=== PATIENT | male | born 1990 | race Caucasian/White ===

== ENCOUNTER 2019-06-21 08:28 | Emergency (ER) | payer SELFPAY ==
--- NOTE | 2019-06-21 09:46 | RADIOLOGY REPORT (SQ) ---
EXAM DESCRIPTION: CLAVICLE LEFT COMPLETED DATE/TIME: 06/21/2019 9:37 am REASON FOR STUDY: bone tenderness COMPARISON: None. NUMBER OF VIEWS: Two views. TECHNIQUE: Frontal and angled images were acquired of the left clavicle. LIMITATIONS: None. FINDINGS: MINERALIZATION: Normal. BONES: No acute fracture or dislocation. No worrisome bone lesions. No significant osteophytes. SOFT TISSUES: No obvious swelling or foreign body. OTHER: No other significant finding. IMPRESSION: Normal appearance of the left clavicle.. 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
--- NOTE | 2019-06-21 11:04 | ER Document Report ---
ED General - General Chief Complaint: Fall Injury Stated Complaint: FALL/LEFT COLLARBONE,SHOULDER PAIN Time Seen by Provider: 06/21/19 10:54 Primary Care Provider: TROY DEGROOT JR, DO [ACTIVE PROVISIONAL STAFF] - Follow up in 1 week (for ortho follow up if symptoms persist) TRAVEL OUTSIDE OF THE [place] IN LAST 30 DAYS: No - HPI Notes: 28 year old male to the ED with C/O left clavicle pain since yesterday. States he was walking his dogs, when they pulled him down and he landed onto the left clavicle. States it hurts to raise his left shoulder and even hurts to use his right hand to get up out of bed. He is right hand dominant. Has not taken anything for the pain. Denies any other injuries. - Related Data Allergies/Adverse Reactions: No Known Allergies Allergy (Verified 06/21/19 08:56) Past Medical History - General Information source: Patient - Social History Smoking Status: Never Smoker Chew tobacco use (# tins/day): No Frequency of alcohol use: Occasional Drug Abuse: None Family History: Reviewed & Not Pertinent Patient has suicidal ideation: No Patient has homicidal ideation: No - Immunizations Hx Diphtheria, Pertussis, Tetanus Vaccination: Yes Review of Systems - Review of Systems Constitutional: denies: Chills, Fever EENT: No symptoms reported Cardiovascular: denies: Chest pain, Palpitations, Orthopnea, Dyspnea, Syncope, Dizziness, Lightheaded Respiratory: denies: Cough, Short of breath Gastrointestinal: denies: Abdominal pain, Diarrhea, Nausea, Vomiting Musculoskeletal: See HPI, Joint pain - left collarbone pain. denies: Deformity Skin: No symptoms reported Hematologic/Lymphatic: No symptoms reported Neurological/Psychological: No symptoms reported -: Yes All other systems reviewed and negative Physical Exam - Vital signs Vitals: Temp Pulse Resp BP Pulse Ox 99.1 F 82 18 141/89 H 98 06/21/19 08:39 06/21/19 08:39 06/21/19 08:39 06/21/19 08:39 06/21/19 08:39 Interpretation: Normal - General General appearance: Appears well, Alert - HEENT Head: Normocephalic, Atraumatic Eyes: Normal Pupils: PERRL - Respiratory Respiratory status: No respiratory distress Chest status: Nontender Breath sounds: Normal Chest palpation: Normal - Cardiovascular Rhythm: Regular Heart sounds: Normal auscultation Murmur: No - Abdominal Inspection: Normal Distension: No distension Bowel sounds: Normal Tenderness: Nontender Organomegaly: No organomegaly - Extremities General upper extremity: Normal inspection, Nontender, Normal color, Normal ROM, Normal temperature General lower extremity: Normal inspection, Nontender, Normal color, Normal ROM, Normal temperature, Normal weight bearing Notes: non tender to palpation of the midline cervical, thoracic, and lumbar spine. There is TTP over the left clavicle without any gross deformity or edema. There is no TTP over the left shoulder joint. There is increased pain when extending the left upper arm and adducting the left shoulder. - Neurological Neuro grossly intact: Yes Cognition: Normal Orientation: AAOx4 [place] Coma Scale Eye Opening: Spontaneous [place] Coma Scale Verbal: Oriented [place] Coma Scale Motor: Obeys Commands [place] Coma Scale Total: 15 Speech: Normal Motor strength normal: LUE, RUE, LLE, RLE Sensory: Normal - Psychological Associated symptoms: Normal affect, Normal mood - Skin Skin Temperature: Warm Skin Moisture: Dry Skin Color: Normal Course - Re-evaluation Re-evalutation: Clavicle X-Ray 06/21/19 00:00 IMPRESSION: Normal appearance of the left clavicle.. Impression: Left clavicle injury. No XR seen by me on XR and confirmed by rad., Will place in shoulder immobilizer and treat with pain meds. Encouraged ortho follow up if pain has not gotten better in one week. Patient agrees with the plan. - Vital Signs Vital signs: Temp Pulse Resp BP Pulse Ox 97.4 F 87 16 121/82 100 06/21/19 11:12 06/21/19 11:12 06/21/19 11:12 06/21/19 11:12 06/21/19 11:12 Procedures - Immobilization Left Shoulder Pre-Proc Neuro Vasc Exam: Normal Immobilizer type: Shoulder immobilizer Performed by: PCT Post-Proc Neuro Vasc Exam: Normal Alignment checked and good: Yes Discharge - Discharge Clinical Impression: Shoulder girdle symptom Injury of left clavicle Qualifiers: Encounter type: initial encounter Qualified Code(s): S49.92XA - Unspecified injury of left shoulder and upper arm, initial encounter Fall Qualifiers: Encounter type: initial encounter Qualified Code(s): W19.XXXA - Unspecified fall, initial encounter Condition: Stable Disposition: HOME, SELF-CARE Instructions: Muscle Strain ([facility]) Additional Instructions: FOLLOW UP WITH ORTHOPEDIST IF SYMPTOMS ARE NOT IMPROVED IN ONE WEEK. WEAR SHOULDER IMMOBILIZER WITHOUT FAIL. ICE THE CLAVICLE/SHOULDER THREE TIMES A DAY FOR 20 MINUTES. TAKE MEDICINES PRESCRIBED. Prescriptions: Tramadol HCl [Ultram 50 mg Tablet] 50 mg PO TID #9 tab Referrals: TROY DEGROOT JR, DO [ACTIVE PROVISIONAL STAFF] - Follow up in 1 week (for ortho follow up if symptoms persist)
[2019-06-21 11:14] VITALS: BP 121/82
== END 2019-06-21 11:15 | disposition home or self-care (01) ==
LOC: ER 08:28
DX: S49.92XA Unspecified injury of left shoulder and upper arm, initial encounter (principal); M25.512 Pain in left shoulder; M79.641 Pain in right hand; W19.XXXA Unspecified fall, initial encounter
CPT/HCPCS: 99283; 73000; L3650